=== PATIENT | male | born 1975 | race African-American/Black ===

== ENCOUNTER 2016-10-17 02:21 | Emergency (ER) | payer MEDICAID ==
[~2016-10-17] VITALS: Ht 175.3 cm; Wt 85.0 kg
[2016-10-17] MEDS ORDERED: OXYCODONE HCL/ACETAMINOPHEN 5/325MG TABLET PO ONE (04:00)
[2016-10-17] MEDS ORDERED: IBUPROFEN 800MG TABLET PO ONE (04:00)
[2016-10-17 05:30] VITALS: BP 110/69
== END 2016-10-17 07:17 | disposition home or self-care (01) ==
LOC: ER 03:37
DX: M25.512 Pain in left shoulder (principal); R07.89 Other chest pain; M25.532 Pain in left wrist; I51.9 Heart disease, unspecified; F17.210 Nicotine dependence, cigarettes, uncomplicated; F12.10 Cannabis abuse, uncomplicated; Z90.5 Acquired absence of kidney; V43.52XA Car driver injured in collision with other type car in traffic accident, initial encounter; Y93.89 Activity, other specified; Y92.488 Other paved roadways as the place of occurrence of the external cause
CPT/HCPCS: 71010; 73030; 73110; 93005; 99284; Z7610